=== PATIENT | male | born 1970 | race African-American/Black ===

== ENCOUNTER 2022-02-25 07:02 | Emergency (ER) | payer OTHER, SELFPAY ==
[2022-02-25 07:09] VITALS: BP 190/117; PULSE 90; RESP 18; TEMP 36.4; O2SAT 100
--- NOTE | 2022-02-25 07:21 | ED.LOWEXIN ---
HPI - Extremity Injury (Lower) General Chief Complaint: Extremity Injury, Lower Stated Complaint: Sciatic nerve pain - LEFT hip Time Seen by Provider: 02/25/22 07:09 History of Present Illness HPI Narrative: This is a 51-year-old male with past medical history of coronary artery disease, hypertension, who presents emergency department complaining of 8 out of 10 left lower extremity pain, described as sharp. He states he has had sciatica in the past and this is a similar pain albeit much stronger than usual and waking him from sleep today. He endorses some numbness to the dorsum of the left foot. He denies injury to the back, falls, weakness, loss of bowel or bladder control or loss of sensation in the groin. He denies fevers or chills. Related Data Allergies Allergy/AdvReac Type Severity Reaction Status Date / Time No Known Allergies Allergy Verified 02/25/22 07:21 Review of Systems Review of Systems: CONSTITUTIONAL: Denies fever, chills, or sweats. EYES: Denies visual changes, redness, or discharge. CARDIOVASCULAR: Denies chest pain, palpitations, or edema. RESPIRATORY: Denies cough or dyspnea. GASTROINTESTINAL: Denies abdominal pain, nausea, vomiting, or diarrhea. GENITOURINARY: Denies dysuria or hematuria. SKIN: Denies rash or itching. MUSCULOSKELETAL: +Back pain, denies joint pain, or myalgia. NEUROLOGIC: Denies headache, numbness, dizziness, or weakness. PSYCHIATRIC: Denies anxiety or depression. Exam Narrative: GENERAL: Well-appearing, well-nourished, and in no acute distress. Appears uncomfortable HEAD: Normocephalic, atraumatic. EYES: PERRLA and EOMI. NECK: Supple. No adenopathy or masses. No carotid bruits or JVD, well-healed anterior surgical scar consistent with tracheostomy CHEST: Clear to auscultation. No respiratory distress. No wheezes rales or rhonchi HEART: Regular rate and rhythm. No murmur heard. Normal peripheral pulses. ABDOMEN: Soft, nontender, nondistended, normal active bowel sounds. BACK: No midline spine tenderness to palpation, no step-off or crepitus, no paraspinal tenderness or spasm noted. EXTREMITIES: Normal range of motion. No edema. SKIN: Warm, dry, no rash. NEURO: No focal deficits. Alert and oriented x3. Strength intact in bilateral lower extremities on flexion and extension at the hip knee and ankle, slight decrease in sensation over the dorsum of the left foot compared to the right. PSYCH: Normal mood and affect. Course Course Emergency Course: 07:57 - Reassessed patient. He states his pain is improving. Blood pressure is still elevated. Patient states he has not been very compliant with his medications. He has no other symptoms today concerning for emergent hypertension. We will refill his medications and treat with Tylenol and Lidoderm patches. 08:32 -Patient continues to improve. He denies weakness of the leg or loss of sensation of the groin. Vital Signs Vital signs: Vital Signs Temperature 97.6 F 02/25/22 07:09 Pulse Rate 90 02/25/22 07:09 Respiratory Rate 18 02/25/22 07:09 Blood Pressure 190/117 H 02/25/22 07:09 Pulse Oximetry 100 02/25/22 07:09 Oxygen Delivery Room Air 02/25/22 07:09 Temperature 97.6 F 02/25/22 07:09 Pulse Rate 86 02/25/22 07:25 Respiratory Rate 18 02/25/22 07:09 Blood Pressure 190/117 H 02/25/22 07:09 Pulse Oximetry 100 02/25/22 07:09 Oxygen Delivery Room Air 02/25/22 07:09 MDM - Extremity Injury (Lower) MDM Narrative Medical decision making narrative: Plan: Pain control Differential Diagnosis Differential diagnosis: Likely other (Sciatica, muscle spasm, muscle strain, other) Discharge Plan Discharge Clinical Impression: Sciatica, Acute pain of left lower extremity, Hypertension Patient Disposition: Home, Self-Care Condition: Improved Instructions: Antibiotic Form, Sciatica (ED), Lower Back Exercises (ED) Additional Instructions: You were seen in the emergency department. Your exam
[2022-02-25] MEDS: ACETAMINOPHEN 500 MG TABLET 1000 MG PO (07:24)
[2022-02-25 07:25] VITALS: PULSE 86
[2022-02-25] MEDS: METOPROLOL TARTRATE 50 MG TAB 25 MG PO (07:25)
[2022-02-25] MEDS: LIDOCAINE 5% PATCH 1 PATCH TRANSDERM (07:44)
[2022-02-25 08:43] VITALS: BP 185/108; PULSE 80; RESP 18; O2SAT 99
== END 2022-02-25 08:44 | disposition home or self-care (01) ==
PROVIDERS: Emergency Provider Preventive Medicine Aerospace Medicine
DX: M54.32 Sciatica, left side (principal); I10 Essential (primary) hypertension; I25.10 Atherosclerotic heart disease of native coronary artery without angina pectoris; T46.5X6A Underdosing of other antihypertensive drugs, initial encounter; Z91.128 Patient's intentional underdosing of medication regimen for other reason
CPT/HCPCS: 99283; A9270